=== PATIENT | male | born 1940 | race Caucasian/White ===

== ENCOUNTER 2016-10-30 08:41 | Inpatient (IN) ==
[2016-10-28 09:07] LABS: MANUAL DIFF NEEDED? NO; URINE MICRO REVIEW NEEDED? NO; URINE SOURCE CLEAN CATCH
[2016-10-28 09:13] LABS: BASO% 0.1 % (0.0-0.8); EOS% 2.9 % (0.0-10.0); HEMATOCRIT 44.2 % (42.0-52.0); HEMOGLOBIN 15.4 g/dL (14.0-18.0); IMM GRAN# 0.05 X1000 (0.0-0.04); IMM GRAN% 0.7 % (0.0-0.5); LYMPH# 1.82 X1000 (1.2-3.4); LYMPH% 26.5 % (20.5-51.1); MCH 30.2 PG (27-31); MCHC 34.8 g/dL (33-37); MCV 86.7 FL (81-99); MONO# 0.91 X1000 (0.11-0.59); MONO% 13.2 % (1.7-9.3); NEUT% 56.6 % (42.2-75.2); PLT 194 X1000 (130-400)
[2016-10-28 09:18] LABS: BILIRUBIN URINE NEGATIVE (NEGATIVE); BLOOD URINE NEGATIVE (NEGATIVE); COLOR YELLOW; GLUCOSE URINE NEGATIVE (NEGATIVE); LEUKOCYTES URINE NEGATIVE (NEGATIVE); NITRITE URINE NEGATIVE (NEGATIVE); PH URINE 5.5; PROTEIN URINE NEGATIVE (NEGATIVE); TURBIDITY URINE CLEAR (CLEAR); UROBILINOGEN URINE NORMAL (NORMAL)
[2016-10-28 09:19] LABS: UR EPITHELIAL CELLS <10 /HPF (<10); URINE BACTERIA NEGATIVE /HPF; URINE RBC <10 /HPF (<10); URINE WBC <10 /HPF (<10)
[2016-10-28 09:26] LABS: INR 1.05; PROTIME 11.1 Seconds (9.2-11.7); PTT 27.5 Seconds (22.0-36.0)
[2016-10-28 09:30] LABS: CALCIUM 9.3 mg/dL (8.8-10.2)
[2016-10-28 09:42] LABS: POTASSIUM 3.6 mmol/L (3.5-5.1)
--- NOTE | 2016-10-28 11:48 | EKG Report ---
Test Performed on : 10/28/2016 08:55:28 AM Test Reason : MD ORDER Blood Pressure : / mmHG Vent. Rate : 070 BPM Atrial Rate : 070 BPM P-R Int : 174 ms QRS Dur : 100 ms QT Int : 384 ms P-R-T Axes : 061 -33 074 degrees QTc Int : 414 ms Normal sinus rhythm. Left axis deviation Nonspecific T wave abnormality Abnormal ECG No previous ECGs available Confirmed by Howie BEST, Vickey Tamayo ([id number]) on 10/28/2016 2:56:27 PM
[2016-10-30] MEDS ORDERED: COLACE ONE (08:55)
[2016-10-30] MEDS ORDERED: PEPCID ONE (08:55)
[2016-10-30] MEDS ORDERED: REGLAN ONE (08:55)
[2016-10-30] MEDS ORDERED: LYRICA ONE (08:56)
[2016-10-30] MEDS ORDERED: CELEBREX ONE (08:56)
[2016-10-30] MEDS ORDERED: LR 1,000 ML ONE (08:56)
[2016-10-30] MEDS ORDERED: KEFZOL 2 GM/D5W 2 GM/50 ML IVPB ONE (08:56)
[2016-10-30] MEDS ORDERED: TORADOL ONE (09:34)
[2016-10-30] MEDS ORDERED: SODIUM CHLORIDE 0.9% ONE (09:34)
[2016-10-30] MEDS ORDERED: MARCAINE 0.25% PF/EPI 1:200,000 ONE (09:34)
[2016-10-30] MEDS ORDERED: NEOSPORIN G.U. IRRIGANT ONE (09:40)
[2016-10-30] MEDS ORDERED: EXPAREL 1.3% ONE (09:40)
[2016-10-30] MEDS ORDERED: DIPRIVAN 1% ONE (10:45)
[2016-10-30] MEDS ORDERED: FENTANYL ONE (10:46)
[2016-10-30] MEDS ORDERED: XYLOCAINE-MPF 2% ONE (10:46)
[2016-10-30] MEDS ORDERED: CYKLOKAPRON 1,000 MG/NS 1,000 MG/100 ML IVPB ONE (11:25)
[2016-10-30] MEDS ORDERED: EPHEDRINE ONE (11:31)
[2016-10-30] MEDS ORDERED: DECADRON ONE (11:37)
[2016-10-30] MEDS ORDERED: OFIRMEV 1000 MG/ISOTONIC SOLN 1,000 MG/100 ML BOTTLE ONE (11:37)
[2016-10-30 12:27] LABS: URINE MICRO REVIEW NEEDED? NO; URINE SOURCE CATH
[2016-10-30 12:30] LABS: BILIRUBIN URINE NEGATIVE (NEGATIVE); BLOOD URINE NEGATIVE (NEGATIVE); COLOR YELLOW; GLUCOSE URINE NEGATIVE (NEGATIVE); LEUKOCYTES URINE NEGATIVE (NEGATIVE); NITRITE URINE NEGATIVE (NEGATIVE); PROTEIN URINE TRACE mg/dL (NEGATIVE); TURBIDITY URINE CLEAR (CLEAR); UROBILINOGEN URINE NORMAL (NORMAL)
[2016-10-30 12:31] LABS: UR EPITHELIAL CELLS <10 /HPF (<10); URINE BACTERIA NEGATIVE /HPF; URINE RBC <10 /HPF (<10); URINE WBC <10 /HPF (<10)
[2016-10-30] MEDS ORDERED: NS 1,000 ML ONE (13:31)
[2016-10-30] MEDS ORDERED: AMBIEN PO PRN (14:18)
[2016-10-30] MEDS ORDERED: ZOFRAN IV PRN (14:18)
[2016-10-30] MEDS: ULTRAM PO SCH ×3 (16:08→23:58)
[2016-10-30] MEDS: NS 1,000 ML IV SCH (16:10)
[2016-10-30] MEDS ORDERED: BSS OPHTH SOLN ONE (16:20)
[2016-10-30] MEDS ORDERED: CYKLOKAPRON 1,000 MG in NS 100 ML IV ONE (17:30)
[2016-10-30] MEDS: OXY IR PO PRN ×2 (18:38→20:03)
[2016-10-30] MEDS: TYLENOL PO SCH (18:41)
[2016-10-30] MEDS: KEFZOL 2 GM/D5W 2 GM/50 ML IVPB IV SCH (19:52)
[2016-10-30] MEDS: PERIDEX MT SCH (21:00)
[2016-10-30] MEDS: RESTORIL PO SCH (21:01)
[2016-10-30] MEDS: FLOMAX PO SCH (21:01)
[2016-10-30] MEDS: ARICEPT PO SCH (21:01)
[2016-10-30] MEDS: OSCAL 500 PO SCH (21:01)
[2016-10-30] MEDS: LYRICA PO SCH (21:01)
[2016-10-30] MEDS: MYCOSTATIN POWDER TOP SCH (21:02)
[2016-10-30] MEDS: COLACE PO SCH (21:02)
[2016-10-30] MEDS: LOTRISONE CREAM TOP SCH (21:02)
[2016-10-31] MEDS: NS 1,000 ML IV SCH ×2 (03:42→19:02)
[2016-10-31] MEDS: KEFZOL 2 GM/D5W 2 GM/50 ML IVPB IV SCH (03:42)
[2016-10-31] MEDS: ULTRAM PO SCH ×4 (05:48→20:26)
[2016-10-31] MEDS: TYLENOL PO SCH ×4 (05:48→19:02)
[2016-10-31] MEDS: XARELTO PO SCH (05:48)
[2016-10-31 06:42] LABS: AGAP 9; BUN 19 mg/dL (8-22); CALCIUM 8.1 mg/dL (8.8-10.2); CHLORIDE 105 mmol/L (98-107); COSMO 279; POTASSIUM 3.6 mmol/L (3.5-5.1); SODIUM 138 mmol/L (136-145); TCO2 24 mmol/L (25-35)
[2016-10-31] MEDS: LYRICA PO SCH ×2 (08:32→20:28)
[2016-10-31] MEDS: PERIDEX MT SCH ×2 (08:32→20:29)
[2016-10-31] MEDS: COLACE PO SCH ×2 (08:33→20:28)
[2016-10-31] MEDS: PEPCID PO SCH (08:33)
[2016-10-31] MEDS: CELEBREX PO SCH ×2 (08:34→20:27)
[2016-10-31] MEDS: HYDROCHLOROTHIAZIDE PO SCH (08:35)
[2016-10-31] MEDS: MONOPRIL PO SCH (08:35)
[2016-10-31] MEDS: ISOPTIN SR PO SCH (08:35)
[2016-10-31] MEDS: FISH OIL CONCENTRATE PO SCH (08:35)
[2016-10-31] MEDS ORDERED: DECADRON IV ONE (09:00)
--- NOTE | 2016-10-31 10:48 | PROGRESS NOTE ---
DATE: 10/31/2016 SUBJECTIVE: Michael Neely is a 76-year-old male who is postoperative day 1 from a right anterior total hip arthroplasty. He has no complaints. OBJECTIVE: He is a well-developed, well-nourished male. He is alert and cooperative on exam. His vital signs are stable. He is afebrile. His hematocrit is stable at greater than 30. His wound is clean, dry, intact without sign of infection. He has minimal output from his drain. ASSESSMENT: Stable postoperative day 1 visit from a right anterior total hip arthroplasty. PLAN: Today, he will continue working on physical therapy. We will remove his drains, Lazaro, and IV fluids today. We will get him mobilized with physical therapy. He will likely go to rehab the 1st part of the week. cc: Hemal Simpson MD
[2016-10-31] MEDS: MORPHINE IV PRN ×2 (10:57→13:30)
[2016-10-31] MEDS: MYCOSTATIN POWDER TOP SCH ×2 (11:03→20:28)
[2016-10-31] MEDS: LOTRISONE CREAM TOP SCH ×2 (11:03→20:28)
[2016-10-31] MEDS: ARICEPT PO SCH (20:26)
[2016-10-31] MEDS: FLOMAX PO SCH (20:27)
[2016-10-31] MEDS: OSCAL 500 PO SCH (20:28)
[2016-11-01] MEDS: TYLENOL PO SCH ×5 (00:31→23:17)
[2016-11-01] MEDS: RESTORIL PO SCH ×2 (00:31→23:17)
[2016-11-01] MEDS: ULTRAM PO SCH ×4 (04:00→20:45)
[2016-11-01 05:50] LABS: HEMATOCRIT 33.8 % (42.0-52.0); HEMOGLOBIN 11.7 g/dL (14.0-18.0)
[2016-11-01] MEDS: XARELTO PO SCH (06:09)
[2016-11-01] MEDS: NS 1,000 ML IV SCH (07:43)
[2016-11-01] MEDS: MONOPRIL PO SCH (09:54)
[2016-11-01] MEDS: FISH OIL CONCENTRATE PO SCH (09:54)
[2016-11-01] MEDS: CELEBREX PO SCH ×2 (09:55→20:45)
[2016-11-01] MEDS: ISOPTIN SR PO SCH (09:55)
[2016-11-01] MEDS: HYDROCHLOROTHIAZIDE PO SCH (09:55)
[2016-11-01] MEDS: PEPCID PO SCH (09:55)
[2016-11-01] MEDS: COLACE PO SCH ×2 (09:55→20:49)
[2016-11-01] MEDS: LYRICA PO SCH ×2 (09:55→20:45)
[2016-11-01] MEDS: PERIDEX MT SCH ×2 (09:56→20:45)
[2016-11-01] MEDS: MYCOSTATIN POWDER TOP SCH ×2 (09:56→20:49)
[2016-11-01] MEDS: LOTRISONE CREAM TOP SCH ×2 (09:57→20:48)
[2016-11-01] MEDS: MILK OF MAGNESIA PO PRN ×2 (09:57→16:57)
--- NOTE | 2016-11-01 10:32 | PROGRESS NOTE ---
DATE: 11/01/2016 SUBJECTIVE: Michael Neely is a 76-year-old male who is postoperative day 2 from a right anterior total hip arthroplasty. He has no complaints. OBJECTIVE: He is a well-developed, well-nourished male. He is alert, oriented, and cooperative with the exam. His vital signs are stable. He is afebrile. His wound is clean, dry, and intact without sign of infection. His leg is neurovascularly intact. His hemoglobin is 11.7. His hematocrit is 33.8. He has walked 30 feet with therapy. ASSESSMENT: Stable right hip after total hip arthroplasty. PLAN: He will likely be transferred to rehab tomorrow. We will get his paperwork done so he will be ready to go. cc: Hemal Simpson MD
[2016-11-01] MEDS: ARICEPT PO SCH (20:45)
[2016-11-01] MEDS: FLOMAX PO SCH (20:45)
[2016-11-01] MEDS: OSCAL 500 PO SCH (20:45)
[2016-11-01] MEDS: OXY IR PO PRN (21:55)
--- NOTE | 2016-11-02 03:46 | OPERATIVE NOTE ---
PROCEDURE DATE: 10/30/2016 PREOPERATIVE DIAGNOSIS: Right hip degenerative joint disease. POSTOPERATIVE DIAGNOSIS: Right hip degenerative joint disease. PROCEDURE PERFORMED: Right anterior total hip arthroplasty using a [facility] size 13 lateral stem with a 58 mm cup, a 36 mm acetabular liner, and a 36 mm +0 head. ANESTHESIA: Spinal. SURGEON: Hemal Simpson MD. SCANNER SUPERVISOR: Mariah Moreno PA-C. SECOND MANAGER HEAVY DUTY: Miguel Angel Mckeon PA-C. COMPLICATIONS: None. BLOOD LOSS: Minimal. DRAINS: Hemovac x1. DESCRIPTION OF PROCEDURE: The patient was brought to the operative suite and placed in supine position. After satisfactory administration of spinal anesthesia, patient was placed on the OSI table in the usual position for right hip. The right hip was then prepped and draped in usual sterile fashion. A longitudinal was made beginning 2 cm distal and 2 cm lateral to the anterior superior iliac spine, extending distally and slightly laterally 8 cm. It was dissected sharply through skin and subcutaneous tissue down to the tensor fascia. The tensor fascia was incised and dissected bluntly down to the deep tensor fascia. The deep tensor fascia was incised and the circumflex vessels were electrocauterized. The rectus femoris muscle was elevated off the anterior aspect of the capsule, the reflected head exposing the anterior capsule and then T- capsulotomy was performed exposing the femoral neck. A femoral neck cut was made with oscillating saw. The femoral head was removed with power corkscrew. The labrum was resected sharply and then the acetabulum was serially reamed to 58. A 58 cup was then driven into place in the proper amount of inclination and anteversion. Once this was locked into place, a 36 mm liner was locked onto the acetabular shell. Attention was directed to the femur. This was externally rotated, extended, adducted, and elevated out of the wound with the hook on the OSI bed. The lateral neck was rongeured and the canal was serially broached to a size 13 high offset, +0 neck length. It was trialed and found be excellent in leg length, offset, and stability to heal. The trial was removed. The definitive stem was seated on the femur, and then the ceramic head was seated on the [place] taper, and then the hip was reduced. It was again found to be in excellent position. The hip was copiously infiltrated with Exparel, including the posterior capsule, anterior capsule, anterior musculature, and subcutaneous tissue. The anterior capsule was repaired with 0 V-LOC suture. A drain was placed deep to the tensor fascia and buried around the stem neck, exiting distally and laterally. Then the tensor fascia was closed with running 0 V-LOC suture. The skin edge approximated with 2-0 Vicryl. Skin was closed with 4-0 Monocryl, and then the skin was closed with Prineo. The patient tolerated the procedure well without complication. At the end of the procedure, all counts were correct x2. The patient was transferred to the recovery room in stable condition. cc: Hemal Simpson MD
[2016-11-02] MEDS: NS 1,000 ML IV SCH (03:56)
[2016-11-02] MEDS: ULTRAM PO SCH ×3 (03:56→10:13)
--- NOTE | 2016-11-02 05:59 | DISCHARGE SUMMARY ---
ADMISSION DATE: 10/30/2016 DISCHARGE DATE: DISCHARGE DIAGNOSIS: Right hip degenerative joint disease, status post right anterior total hip arthroplasty. DISCHARGE MEDICATIONS: See discharge medication list. DISPOSITION: Patient discharged to rehab with instructions for a total hip arthroplasty protocol anteriorly with no hip precautions. Instructed to return for any signs or symptoms of infection, deep venous thrombosis. Instructed to leave the Prineo gauze dressing on his hip wound. He can wash the wound with soap and water and keep it clean and dry, but not to remove the gauze until November 09. He is to follow up with Dr. Simpson's PA Mariah Moreno at the [facility] on November 09 for removal of gauze. HOSPITAL COURSE: The patient underwent a right anterior total hip arthroplasty. His postoperative course was unremarkable. At discharge, he is afebrile, tolerating a regular diet, ambulating well with physical therapy. His wound is clean, dry, and intact without sign of infection. He is discharged to rehab in stable condition instructed followup as described above. cc: Hemal Simpson MD MTDTracy
[2016-11-02 06:03] LABS: HEMOGLOBIN 11.4 g/dL (14.0-18.0)
[2016-11-02] MEDS: TYLENOL PO SCH ×2 (06:21→12:18)
[2016-11-02] MEDS: XARELTO PO SCH (06:21)
[2016-11-02] MEDS: CELEBREX PO SCH ×2 (07:54→10:14)
[2016-11-02] MEDS: FISH OIL CONCENTRATE PO SCH ×2 (07:55→10:15)
[2016-11-02] MEDS: COLACE PO SCH ×2 (07:56→10:15)
[2016-11-02] MEDS: PEPCID PO SCH ×2 (07:56→10:14)
[2016-11-02] MEDS: MONOPRIL PO SCH ×2 (07:56→10:14)
[2016-11-02] MEDS: LYRICA PO SCH ×2 (07:56→10:14)
[2016-11-02] MEDS: ISOPTIN SR PO SCH ×2 (07:57→10:15)
[2016-11-02] MEDS: LOTRISONE CREAM TOP SCH ×2 (07:58→10:14)
[2016-11-02] MEDS: MYCOSTATIN POWDER TOP SCH ×2 (07:58→10:14)
[2016-11-02] MEDS: PERIDEX MT SCH (07:59)
--- NOTE | 2016-11-02 09:20 | Diag Imaging Result Doc PS360 ---
EXAM: CHEST-PORTABLE HISTORY: rehab placement TECHNIQUE: AP portable upright at 0900 COMMENT: There is apparent COPD. There are no previous studies. There are scattered nodular opacities in the perihilar regions bilaterally particularly the right upper lobe. There are small nodules in the lower lobes which may be due to granulomata. The heart size and pulmonary vascularity are within normal limits. IMPRESSION: No definite evidence of acute pulmonary disease. Advise comparison with previous studies. Electronically signed by Filemon Williamson 11/02/2016 9:18 AM
[2016-11-02] MEDS: HYDROCHLOROTHIAZIDE PO SCH (10:14)
[2016-11-02 11:14] VITALS: BP 133/60
[2016-11-02] MEDS: OXY IR PO PRN (12:18)
== END 2016-11-02 14:05 ==
LOC: SURHOLD 08:41 → 4N 14:11
PROVIDERS: ADMIT Orthopaedic Surgery; ATTEND Orthopaedic Surgery